=== PATIENT | male | born 1990 | race African-American/Black ===

== ENCOUNTER 2016-07-18 22:03 | Emergency (ER) | payer OTHER ==
[~2016-07-18] VITALS: Ht 172.7 cm; Wt 83.9 kg
[2016-07-18 22:04] VITALS: BP 135/73
[2016-07-19] MEDS ORDERED: CYCL10TA PO (00:52)
[2016-07-19] MEDS ORDERED: CYCLOBENZAPRINE 10 MG TAB PO ONE (01:00)
--- NOTE | 2016-07-19 09:09 | REP ---
Left knee four views : There is no fracture or dislocation. Mineralization and joint spaces are normal. There are no calcifications or foreign bodies. Impression: Negative left knee. Note from the technologist states the patient could not tolerate a sunrise view. Signed by Gavin Piedra MD 07/19/2016 09:00 A
== END 2016-07-19 01:03 | disposition home or self-care (01) ==
LOC: M ED 23:10
DX: S76.312A Strain of muscle, fascia and tendon of the posterior muscle group at thigh level, left thigh, initial encounter (principal); W50.0XXA Accidental hit or strike by another person, initial encounter; Y92.39 Other specified sports and athletic area as the place of occurrence of the external cause; Y93.61 Activity, american tackle football; Y99.9 Unspecified external cause status